=== PATIENT | female | born 1940 | race Caucasian/White ===

== ENCOUNTER → 2016-08-06 | Outpatient (CLI) | payer MEDICARE ==
[~2016-08-06] MED LIST: CALC1CAP8 PO; DEXT30SU5 PO; ENAL2.5T32 PO; FUROSEMIDE 20 MG/2 ML ONE; LEVE500T53 PO; MEGE400O PO; MEGE40TA PO; MULT-464 PO; MULT-717 PO; OMEP40CA6 PO; PANT40TA5 PO; RIVA20TA PO; TAMO20TA PO; WARF5TAB7 PO; [UNRECOGNIZED DRUG - CODE] PO
== END | disposition home or self-care (01) ==
LOC: RAD 12:35
PROVIDERS: ATTEND Urology
DX: R31.0 Gross hematuria (principal); R33.9 Retention of urine, unspecified
CPT/HCPCS: 78708; A9562; J1940

== ENCOUNTER → 2016-11-10 | Outpatient (CLI) | payer MEDICARE | END | disposition home or self-care (01) | LOC: RAD 11:37 | PROVIDERS: ATTEND Urology | DX: N13.30 Unspecified hydronephrosis (principal) | CPT/HCPCS: 78708; A9562; J1940 ==

== ENCOUNTER → 2016-11-25 | Outpatient (CLI) | payer MEDICARE ==
[~2016-11-25] MED LIST changes: -FUROSEMIDE 20 MG/2 ML ONE
[2016-11-25 15:55] LABS: ASPARTATE AMINO TRANSFERASE 17 U/L (15-37); BLOOD UREA NITROGEN 21 mg/dL (7-18)
== END | disposition home or self-care (01) ==
LOC: STAR 14:16
PROVIDERS: ATTEND Urology
DX: Z01.818 Encounter for other preprocedural examination (principal); T83.711A Erosion of implanted vaginal mesh to surrounding organ or tissue, initial encounter; R79.1 Abnormal coagulation profile
CPT/HCPCS: 36415; 80053; 85025; 85610; 85730; 93005

== ENCOUNTER 2016-12-06 14:19 | Day surgery (SDC) | payer MEDICARE ==
[~2016-12-06] VITALS: Ht 157.5 cm; Wt 86.0 kg
[~2016-12-06 14:19] MED LIST changes: +DEXAMETHASONE 4 MG/ML, 1ML ONE; +ONDANSETRON 2MG/ML, 2ML ONE; +PROPOFOL 10 MG/ML, 20ML ONE
[2016-12-06] MEDS ORDERED: FENTANYL PF 100 MCG/2ML ONE (14:49)
[2016-12-06] MEDS ORDERED: MIDAZOLAM 1 MG/ML, 2ML ONE (14:49)
[2016-12-06 14:51] VITALS: BP 161/96
[2016-12-06] MEDS ORDERED: LACTATED RINGERS 1,000 ML IV SCH (14:55)
[2016-12-06] MEDS ORDERED: EPINEPHRINE 1 MG/ML, 1ML ONE (16:19)
[2016-12-06] MEDS ORDERED: BUPIVACAINE/PF 0.25% ONE (16:19)
[2016-12-06] MEDS ORDERED: ONDANSETRON 2MG/ML, 2ML IVPush PRN (16:30)
[2016-12-06] MEDS ORDERED: hydrALAzine 20 MG/ML, 1ML IV PRN (16:30)
[2016-12-06] MEDS ORDERED: OXYcodone 5 MG/5 ML ORAL.SOL UDC PO PRN (16:30)
[2016-12-06] MEDS ORDERED: HYDROmorphone 1 MG/ML, 1ML IV PRN (16:30)
[2016-12-06] MEDS ORDERED: ACETAMINOPHEN 325 MG TABLET PO PRN (16:30)
[2016-12-06] MEDS ORDERED: FENTANYL PF 100 MCG/2ML IV PRN (16:30)
[2016-12-06] MEDS ORDERED: MEPERIDINE/PF 25MG/0.5ML IVPush PRN (16:30)
[2016-12-06] MEDS ORDERED: LABETALOL 5MG/ML, 20ML IV PRN (16:30)
[2016-12-06] MEDS ORDERED: CEFTRIAXONE 1,000 MG ONE (16:45)
[2016-12-06] MEDS ORDERED: OXYcodone/APAP 5/325MG TABLET PO PRN (17:30)
== END 2016-12-06 19:05 ==
LOC: OR 14:19
PROVIDERS: ATTEND Urology
DX: T83.711A Erosion of implanted vaginal mesh to surrounding organ or tissue, initial encounter (principal); N13.39 Other hydronephrosis; N18.9 Chronic kidney disease, unspecified; N39.46 Mixed incontinence; Y83.8 Other surgical procedures as the cause of abnormal reaction of the patient, or of later complication, without mention of misadventure at the time of the procedure; Z85.41 Personal history of malignant neoplasm of cervix uteri; Z88.0 Allergy status to penicillin; Z88.8 Allergy status to other drugs, medicaments and biological substances
CPT/HCPCS: 57295; J0171; J0696; J1100; J2250; J2405; J2704; J3010; J3490; J7120

== ENCOUNTER 2017-01-19 09:09 | Day surgery (SDC) | payer MEDICARE ==
[~2017-01-19] VITALS: Ht 160 cm; Wt 86.4 kg
[~2017-01-19 09:09] MED LIST changes: -DEXAMETHASONE 4 MG/ML, 1ML ONE; -DEXT30SU5 PO; +DEXT30SU8 PO; -ONDANSETRON 2MG/ML, 2ML ONE; -PROPOFOL 10 MG/ML, 20ML ONE
[2017-01-19 09:36] VITALS: BP 159/96
[2017-01-19] MEDS ORDERED: SODIUM CHLORIDE 0.9% 1,000 ML IV SCH (09:40)
[2017-01-19] MEDS ORDERED: CEFAZOLIN PMX 1GM/50ML 50 ML IVPB ONE (10:00)
[2017-01-19] MEDS ORDERED: LIDOCAINE 1%, 20ML ONE (10:31)
[2017-01-19] MEDS ORDERED: NALOXONE 1 MG/ML, 2ML ONE (10:48)
[2017-01-19] MEDS ORDERED: FLUMAZENIL 0.1 MG/1 ML, 5ML ONE (10:48)
[2017-01-19] MEDS ORDERED: MIDAZOLAM 1 MG/ML, 5ML ONE (10:48)
[2017-01-19] MEDS ORDERED: FENTANYL PF 100 MCG/2ML ONE (10:48)
[2017-01-19] MEDS ORDERED: CIPROFLOXACIN/PMX 400MG/200ML 200 ML IVPB ONE (11:00)
[2017-01-19] MEDS ORDERED: CYSTO CONRAY II 250 ML VIAL UR ONE (12:06)
[2017-01-19] MEDS ORDERED: VISIPAQUE 270 MG/ML, 50ML BOTTLE ONE (12:06)
== END 2017-01-19 13:55 ==
LOC: OUT 09:09
PROVIDERS: ATTEND Urology
DX: T83.518A Infection and inflammatory reaction due to other urinary catheter, initial encounter (principal); Y83.8 Other surgical procedures as the cause of abnormal reaction of the patient, or of later complication, without mention of misadventure at the time of the procedure; Y92.89 Other specified places as the place of occurrence of the external cause; I10 Essential (primary) hypertension; Z88.0 Allergy status to penicillin; Z88.8 Allergy status to other drugs, medicaments and biological substances; Z90.49 Acquired absence of other specified parts of digestive tract; Z98.890 Other specified postprocedural states
CPT/HCPCS: 51102; 75989; 76942; 99156; 99157; C1725; C1769; J2250; J3010; J3490; Q9958; Q9966; J2310

== ENCOUNTER 2017-07-25 09:51 | Day surgery (SDC) | payer MEDICARE ==
[~2017-07-25] VITALS: Ht 158.8 cm; Wt 84.3 kg
[~2017-07-25 09:51] MED LIST changes: +WARF-36 PO; -WARF5TAB7 PO
[2017-07-25 10:59] VITALS: BP 166/93
[2017-07-25] MEDS ORDERED: LACTATED RINGERS 1,000 ML IV SCH (10:59)
[2017-07-25] MEDS ORDERED: FENTANYL PF 100 MCG/2ML ONE (11:26)
[2017-07-25] MEDS ORDERED: DEXAMETHASONE 4 MG/ML, 1ML ONE (11:29)
[2017-07-25] MEDS ORDERED: PROPOFOL 10 MG/ML, 20ML ONE (11:29)
[2017-07-25] MEDS ORDERED: CIPROFLOXACIN 400MG/200ML PMX ONE (11:29)
[2017-07-25] MEDS ORDERED: ONDANSETRON 2MG/ML, 2ML ONE (11:29)
[2017-07-25 11:41] LABS: INTERNATIONAL NORMALIZED RATIO 0.99 (0.93-1.1); PROTHROMBIN TIME 10.3 Seconds (9.6-11.5)
[2017-07-25] MEDS ORDERED: LABETALOL 5MG/ML, 20ML IV PRN (12:00)
[2017-07-25] MEDS ORDERED: morphine SULFATE 10 MG/ML, 1ML IV PRN (12:00)
[2017-07-25] MEDS ORDERED: ACETAMINOPHEN 325 MG TABLET PO PRN (12:00)
[2017-07-25] MEDS ORDERED: ALBUTEROL SULFATE 2.5 MG/3 ML NPPB PRN (12:00)
[2017-07-25] MEDS ORDERED: FENTANYL PF 100 MCG/2ML IV PRN (12:00)
[2017-07-25] MEDS ORDERED: hydrALAzine 20 MG/ML, 1ML IV PRN (12:00)
[2017-07-25] MEDS ORDERED: OMNIPAQUE 350 MG/ML, 50 ML BOTTLE IV ONE (12:00)
[2017-07-25] MEDS ORDERED: HYDROmorphone 1 MG/ML, 1ML IV PRN (12:00)
[2017-07-25] MEDS ORDERED: PROMETHAZINE 12.5 MG SUPP PR PRN (12:00)
[2017-07-25] MEDS ORDERED: PROMETHAZINE 25 MG/ML, 1ML IV PRN (12:00)
[2017-07-25] MEDS ORDERED: OXYcodone 5 MG/5 ML ORAL.SOL UDC PO PRN (12:00)
[2017-07-25] MEDS ORDERED: OMNIPAQUE 350 MG/ML, 50 ML BOTTLE ONE (12:28)
[2017-07-25] MEDS ORDERED: OXYcodone/APAP 5/325MG TABLET PO PRN (12:30)
== END 2017-07-25 14:45 ==
LOC: OUT 09:51
PROVIDERS: ATTEND Urology
DX: N13.30 Unspecified hydronephrosis (principal); N39.46 Mixed incontinence; Z88.0 Allergy status to penicillin; Z88.8 Allergy status to other drugs, medicaments and biological substances
CPT/HCPCS: 36415; 52332; 74420; 85610; 93005; C2617; J0744; J1100; J2405; J2704; J3010; J7120; Q9967

== ENCOUNTER 2018-05-07 17:46 | Inpatient (IN) | payer MEDICARE ==
[~2018-05-07] VITALS: Ht 162.6 cm; Wt 73.8 kg
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
[2018-05-07] MEDS ORDERED: SODIUM CHLORIDE FLUSH 10ML SYR IVF ONE (18:30)
--- NOTE | 2018-05-07 18:37 | NUR ---
LAB AT BEDSIDE. ATTEMPTED IV X 2,UNSUCCESSFUL
--- NOTE | 2018-05-07 18:50 | NUR ---
REPORT TO CLAUDIA SAN
[2018-05-07 18:53] LABS: CLOSTRIDIUM DIFFICILE ANTIGEN NEGATIVE; CLOSTRIDIUM DIFFICILE TOXIN NEGATIVE (Negative)
[2018-05-07 19:03] LABS: ALANINE AMINOTRANSFERASE 97 U/L (12-78); ALBUMIN 2.5 g/dL (3.4-5.0); ANION GAP 10 mmol/L (5-15); CALCIUM 8.8 mg/dL (8.5-10.1); CHLORIDE 112 mmol/L (98-107); CREATININE 3.27 mg/dL (0.55-1.02)
[2018-05-07 19:05] LABS: ALKALINE PHOSPHATASE 94 U/L (45-117); BILIRUBIN,TOTAL 0.2 mg/dL (0.2-1.0)
--- NOTE | 2018-05-07 19:17 | NUR ---
REPORT FROM BROOKLYNN HUSTON IN NAD VERY PLEASENT PIV PLACED
[2018-05-07 19:23] LABS: MEAN CORPUSCULAR HEMOGLOBIN 27.7 pg (27.0-34.8); MEAN CORPUSCULAR HGB CONC 32.8 g/dL (32.4-35.8); MEAN CORPUSCULAR VOLUME 84.5 fL (80-100); MEAN PLATELET VOLUME 7.9 fL (7.4-10.4); PLATELET COUNT 464 x10^3/uL (130-400); RED CELL DISTRIBUTION WIDTH 20.5 % (9.6-15.2)
[2018-05-07 19:35] LABS: MICROSCOPIC INDICATED
[2018-05-07 19:44] LABS: CULTURE INDICATED? YES
[2018-05-07 19:46] LABS: MD YES
[2018-05-07 19:48] LABS: ANISOCYTOSIS 2+; BAND#(MANUAL) 0.53 x10^3/uL; BANDS%(MANUAL) 8 % (0-7); HYPOCHROMIA 1+; LYMPH#(MANUAL) 0.53 x10^3/uL (1-3.4); LYMPHS% (MANUAL) 8 % (22-44); MICROCYTOSIS 1+; MONOS% (MANUAL) 3 % (2-9); SEG#(MANUAL) 5.35 x10^3/uL (1.8-6.8); SEGS% (MANUAL) 81 % (42-75)
[2018-05-07 19:49] LABS: <PLATELET ESTIMATE> INCREASED; LARGE PLATELETS 1+; POLYCHROMASIA 1+; ROULEAUX 1+; TOXIC GRAN 1+
[2018-05-07] MEDS ORDERED: SODIUM CHLORIDE 0.9% 1,000ML IVBOLUS ONE (21:00)
[2018-05-07] MEDS ORDERED: CEFTRIAXONE PMX 1GM/50ML 50 ML IVPB ONE (21:00)
[2018-05-07] MEDS ORDERED: metroNIDAZOLE 500 MG TABLET PO ONE (21:30)
[2018-05-07] MEDS ORDERED: SODIUM CHLORIDE 0.9% 1,000 ML IV SCH (21:36)
[2018-05-07] MEDS ORDERED: CEFTRIAXONE PMX 1GM/50ML 50 ML ONE (21:38)
[2018-05-07] MEDS ORDERED: metroNIDAZOLE 500 MG TABLET ONE (21:38)
[2018-05-07 22:00] VITALS: BP 135/81
[2018-05-07] MEDS ORDERED: ONDANSETRON 2MG/ML, 2ML IVPush PRN (22:00)
[2018-05-07] MEDS ORDERED: ONDANSETRON ODT 4 MG PO PRN (22:00)
--- NOTE | 2018-05-07 22:01 | NUR ---
REPORT TO LUAN PT TO FLOOR WITH TECH
[2018-05-07] MEDS: TAMOXIFEN 10 MG TABLET PO SCH (22:30)
[2018-05-07] MEDS: VANCOMYCIN 50 MG/ML ORAL SUSP PO SCH (22:49)
[2018-05-08 02:00] VITALS: BP 101/66
[2018-05-08] MEDS: VANCOMYCIN 50 MG/ML ORAL SUSP PO SCH ×4 (05:19→21:49)
[2018-05-08 06:28] LABS: INTERNATIONAL NORMALIZED RATIO 4.49 (0.93-1.1); PROTHROMBIN TIME 44.9 Seconds (9.6-11.5)
[2018-05-08 06:32] LABS: MEAN CORPUSCULAR HEMOGLOBIN 27.4 pg (27.0-34.8); MEAN CORPUSCULAR HGB CONC 32.5 g/dL (32.4-35.8); MEAN CORPUSCULAR VOLUME 84.5 fL (80-100); MEAN PLATELET VOLUME 7.8 fL (7.4-10.4); PLATELET COUNT 381 x10^3/uL (130-400); RED BLOOD COUNT 2.89 x10^6/uL (3.82-5.3); RED CELL DISTRIBUTION WIDTH 20.1 % (9.6-15.2)
[2018-05-08 06:33] LABS: ANION GAP 9 mmol/L (5-15); CALCIUM 8.2 mg/dL (8.5-10.1); CHLORIDE 117 mmol/L (98-107)
[2018-05-08 06:36] LABS: ALANINE AMINOTRANSFERASE 78 U/L (12-78); ALKALINE PHOSPHATASE 78 U/L (45-117); BILIRUBIN,TOTAL 0.4 mg/dL (0.2-1.0); CREATININE 3.03 mg/dL (0.55-1.02); TOTAL PROTEIN 6.7 g/dL (6.4-8.2)
[2018-05-08 07:44] VITALS: BP 99/61
[2018-05-08 07:47] LABS: BASOPHILS # (AUTO) 0.03 x10^3/uL (0-0.1); BASOPHILS % (AUTO) 1 % (0-1); EOSINOPHILS # (AUTO) 0.17 x10^3/uL (0-0.4); EOSINOPHILS % (AUTO) 4 % (1-7); LYMPHOCYTES % (AUTO) 24 % (22-44); MD SCAN; MONOCYTES % (AUTO) 9 % (2-9); NEUTROPHILS # (AUTO) 2.91 x10^3/uL (1.8-6.8); NEUTROPHILS % (AUTO) 63 % (42-75)
[2018-05-08] MEDS: MEGESTROL 40MG TABLET PO SCH ×2 (08:58→21:48)
[2018-05-08] MEDS: PANTOPROZOLE 40MG TABLET PO SCH (08:59)
[2018-05-08] MEDS: ACETAMINOPHEN 325 MG TABLET PO PRN (08:59)
[2018-05-08] MEDS ORDERED: WARFARIN 5 MG TABLET PO-COUM SCH (09:00)
[2018-05-08] MEDS: CEFTRIAXONE PMX 1GM/50ML 50 ML IV SCH (09:50)
[2018-05-08] MEDS: SODIUM BICARBONATE 8.4% 150 MEQ in DEXTROSE 5% 1,000 ML IV SCH (10:26)
[2018-05-08 13:29] VITALS: BP 97/56
[2018-05-08] MEDS ORDERED: MAGNESIUM SULFATE PMX 2GM/50ML 50 ML IV ONE (17:00)
[2018-05-08 17:19] VITALS: BP 100/65
[2018-05-08 20:49] VITALS: BP 131/68
[2018-05-08] MEDS: TAMOXIFEN 10 MG TABLET PO SCH (21:48)
[2018-05-09 01:30] VITALS: BP 96/59
[2018-05-09] MEDS: SODIUM BICARBONATE 8.4% 150 MEQ in DEXTROSE 5% 1,000 ML IV SCH ×2 (03:38→14:32)
[2018-05-09] MEDS: VANCOMYCIN 50 MG/ML ORAL SUSP PO SCH ×4 (04:31→21:55)
[2018-05-09 06:12] LABS: INTERNATIONAL NORMALIZED RATIO 3.51 (0.93-1.1); PROTHROMBIN TIME 35.5 Seconds (9.6-11.5)
[2018-05-09 06:14] LABS: ALBUMIN 1.7 g/dL (3.4-5.0); ANION GAP 8 mmol/L (5-15); BASOPHILS # (AUTO) 0.01 x10^3/uL (0-0.1); BASOPHILS % (AUTO) 0 % (0-1); CALCIUM 7.5 mg/dL (8.5-10.1); CHLORIDE 111 mmol/L (98-107); CREATININE 2.77 mg/dL (0.55-1.02); EOSINOPHILS # (AUTO) 0.18 x10^3/uL (0-0.4); EOSINOPHILS % (AUTO) 4 % (1-7); LYMPHOCYTES # (AUTO) 1.43 x10^3/uL (1-3.4); LYMPHOCYTES % (AUTO) 31 % (22-44); MD NO; MEAN CORPUSCULAR HEMOGLOBIN 27.8 pg (27.0-34.8); MEAN CORPUSCULAR HGB CONC 32.9 g/dL (32.4-35.8); MEAN CORPUSCULAR VOLUME 84.4 fL (80-100); MEAN PLATELET VOLUME 7.9 fL (7.4-10.4); MONOCYTES # (AUTO) 0.36 x10^3/uL (0.2-0.8); MONOCYTES % (AUTO) 8 % (2-9); NEUTROPHILS # (AUTO) 2.66 x10^3/uL (1.8-6.8); NEUTROPHILS % (AUTO) 57 % (42-75); PLATELET COUNT 329 x10^3/uL (130-400); RED BLOOD COUNT 2.74 x10^6/uL (3.82-5.3); RED CELL DISTRIBUTION WIDTH 20.6 % (9.6-15.2)
[2018-05-09 08:09] VITALS: BP 101/60
[2018-05-09] MEDS: MEGESTROL 40MG TABLET PO SCH ×2 (09:07→21:55)
[2018-05-09] MEDS: PANTOPROZOLE 40MG TABLET PO SCH (09:07)
[2018-05-09] MEDS: CEFTRIAXONE PMX 1GM/50ML 50 ML IV SCH (09:38)
[2018-05-09] MEDS ORDERED: CIPROFLOXACIN LACTATE 200 MG in DEXTROSE 5% 100 ML IV SCH (15:00)
[2018-05-09 16:13] VITALS: BP 104/62
[2018-05-09] MEDS ORDERED: WARFARIN 1 MG TABLET PO-COUM ONE (18:00)
[2018-05-09 20:48] VITALS: BP 97/58
[2018-05-09] MEDS: TAMOXIFEN 10 MG TABLET PO SCH (21:55)
[2018-05-10] MEDS: LOPERAMIDE 2 MG CAPSULE PO PRN ×2 (00:28→06:28)
[2018-05-10] MEDS: ACETAMINOPHEN 325 MG TABLET PO PRN (00:42)
[2018-05-10 04:00] VITALS: BP 103/58
[2018-05-10] MEDS: VANCOMYCIN 50 MG/ML ORAL SUSP PO SCH ×4 (04:26→22:31)
[2018-05-10 05:33] LABS: ALBUMIN 1.6 g/dL (3.4-5.0); ANION GAP 5 mmol/L (5-15); CALCIUM 7.1 mg/dL (8.5-10.1); CHLORIDE 106 mmol/L (98-107); CREATININE 2.69 mg/dL (0.55-1.02); MEAN CORPUSCULAR HEMOGLOBIN 28.3 pg (27.0-34.8); MEAN CORPUSCULAR HGB CONC 33.8 g/dL (32.4-35.8); MEAN CORPUSCULAR VOLUME 83.7 fL (80-100); MEAN PLATELET VOLUME 7.5 fL (7.4-10.4); PLATELET COUNT 326 x10^3/uL (130-400); RED BLOOD COUNT 2.57 x10^6/uL (3.82-5.3); RED CELL DISTRIBUTION WIDTH 20.9 % (9.6-15.2)
[2018-05-10 05:37] LABS: INTERNATIONAL NORMALIZED RATIO 2.5 (0.93-1.1); PROTHROMBIN TIME 25.6 Seconds (9.6-11.5)
[2018-05-10] MEDS ORDERED: MAGNESIUM SULFATE PMX 2GM/50ML 50 ML IV ONE (06:00)
[2018-05-10 06:04] LABS: BASOPHILS # (AUTO) 0.03 x10^3/uL (0-0.1); BASOPHILS % (AUTO) 1 % (0-1); EOSINOPHILS # (AUTO) 0.22 x10^3/uL (0-0.4); EOSINOPHILS % (AUTO) 4 % (1-7); LYMPHOCYTES # (AUTO) 1.49 x10^3/uL (1-3.4); LYMPHOCYTES % (AUTO) 30 % (22-44); MD SCAN; MONOCYTES # (AUTO) 0.41 x10^3/uL (0.2-0.8); MONOCYTES % (AUTO) 8 % (2-9); NEUTROPHILS # (AUTO) 2.75 x10^3/uL (1.8-6.8); NEUTROPHILS % (AUTO) 56 % (42-75)
[2018-05-10 07:48] VITALS: BP 107/67
[2018-05-10] MEDS: MEGESTROL 40MG TABLET PO SCH ×2 (09:00→22:30)
[2018-05-10] MEDS: POTASSIUM CHLORIDE 20 MEQ TAB.ER.PRT PO SCH ×2 (09:00→16:19)
[2018-05-10] MEDS: PANTOPROZOLE 40MG TABLET PO SCH (09:00)
[2018-05-10] MEDS: SODIUM BICARBONATE 8.4% 150 MEQ in DEXTROSE 5% 1,000 ML IV SCH (11:50)
[2018-05-10] MEDS: CIPROFLOXACIN/DEXT 200MG PMX 100 ML IVPB SCH (12:47)
[2018-05-10 13:00] VITALS: BP 94/59
[2018-05-10] MEDS ORDERED: DIPHENOXYLATE/ATROPINE TABLET PO PRN (17:30)
[2018-05-10 17:55] VITALS: BP 100/59
[2018-05-10] MEDS ORDERED: WARFARIN 5 MG TABLET PO-COUM ONE (18:00)
[2018-05-10] MEDS: SODIUM CHLORIDE 0.9% 1,000 ML IV SCH (19:38)
[2018-05-10 19:48] VITALS: BP 118/70
[2018-05-10] MEDS: TAMOXIFEN 10 MG TABLET PO SCH (22:29)
[2018-05-11 02:40] VITALS: BP 91/45
[2018-05-11] MEDS: VANCOMYCIN 50 MG/ML ORAL SUSP PO SCH ×3 (04:37→16:24)
[2018-05-11] MEDS: CIPROFLOXACIN/DEXT 200MG PMX 100 ML IVPB SCH (05:25)
[2018-05-11 05:45] LABS: INTERNATIONAL NORMALIZED RATIO 2.65 (0.93-1.1); PROTHROMBIN TIME 27.1 Seconds (9.6-11.5)
[2018-05-11 05:50] LABS: ALBUMIN 1.7 g/dL (3.4-5.0); ANION GAP 6 mmol/L (5-15); CALCIUM 7.6 mg/dL (8.5-10.1); CHLORIDE 111 mmol/L (98-107)
[2018-05-11 05:51] LABS: CREATININE 2.49 mg/dL (0.55-1.02)
[2018-05-11 07:50] VITALS: BP 104/65
[2018-05-11] MEDS: LOPERAMIDE 2 MG CAPSULE PO PRN (08:05)
[2018-05-11] MEDS: PANTOPROZOLE 40MG TABLET PO SCH (08:05)
[2018-05-11] MEDS: MEGESTROL 40MG TABLET PO SCH (08:06)
[2018-05-11] MEDS: SODIUM CHLORIDE 0.9% 1,000 ML IV SCH (08:09)
[2018-05-11 10:19] LABS: % IRON SATURATION 12 % (20-55); IRON LEVEL 25 mcg/dL (50-170); TOTAL IRON BINDING CAPACITY 210 mcg/dL (250-450)
[2018-05-11 13:00] VITALS: BP 98/63
[2018-05-11] MEDS ORDERED: FERR325T18 PO (15:42)
[2018-05-11] MEDS ORDERED: WARFARIN 2 MG TABLET PO-COUM ONE (18:00)
== END 2018-05-11 18:09 | DRG 698 ==
LOC: ED 20:01 → SUATTDRO 21:35 → EDIP 21:40 → 4WST 22:15 → 3NW 05-10 17:52
PROVIDERS: ADMIT Hospitalist; ATTEND Hospitalist
PROC: 0T9B70Z Drainage of Bladder with Drainage Device, Via Natural or Artificial Opening (ICD-10-PCS; principal; 2018-05-07)
DX: T83.518A Infection and inflammatory reaction due to other urinary catheter, initial encounter (principal); E43 Unspecified severe protein-calorie malnutrition; N17.9 Acute kidney failure, unspecified; E87.2 Acidosis; I12.9 Hypertensive chronic kidney disease with stage 1 through stage 4 chronic kidney disease, or unspecified chronic kidney disease; N18.9 Chronic kidney disease, unspecified; Z88.0 Allergy status to penicillin; Z88.8 Allergy status to other drugs, medicaments and biological substances; Z68.27 Body mass index [BMI] 27.0-27.9, adult; B96.20 Unspecified Escherichia coli [E. coli] as the cause of diseases classified elsewhere; D63.1 Anemia in chronic kidney disease; E86.9 Volume depletion, unspecified; K21.9 Gastro-esophageal reflux disease without esophagitis; N13.9 Obstructive and reflux uropathy, unspecified; N25.0 Renal osteodystrophy; Y84.6 Urinary catheterization as the cause of abnormal reaction of the patient, or of later complication, without mention of misadventure at the time of the procedure; Z79.01 Long term (current) use of anticoagulants; Z85.42 Personal history of malignant neoplasm of other parts of uterus; Z85.43 Personal history of malignant neoplasm of ovary; Z86.011 Personal history of benign neoplasm of the brain; Z86.711 Personal history of pulmonary embolism; Z86.718 Personal history of other venous thrombosis and embolism; Z90.710 Acquired absence of both cervix and uterus; Z92.3 Personal history of irradiation; R19.7 Diarrhea, unspecified
CPT/HCPCS: 36415; 76770; 80048; 80053; 81001; 82040; 82306; 83540; 83550; 83735; 83970; 84100; 85014; 85018; 85025; 85610; 87077; 87086; 87186; 87324; 96374; G0378; J0696; J3370; J7070; J0744; J3475; J7030